=== PATIENT | male | born 1940 | race Two or more races ===

== ENCOUNTER 2017-01-31 13:03 | Emergency (ER) | payer OTHER ==
[~2017-01-31] VITALS: Ht 175.3 cm; Wt 70.3 kg
[2017-01-31] MEDS ORDERED: LIDOCAINE 2% JELLY UROJET 10 ML TOP ONE (13:15)
[2017-01-31] MEDS ORDERED: LIDOCAINE 2% JELLY 11ml (GLYDO) UR ONE (13:30)
[2017-01-31 13:42] VITALS: BP 194/104
[2017-01-31 14:01] LABS: Urine Bilirubin Negative (Negative); Urine Color Yellow (Yellow); Urine Glucose Normal (Normal); Urine Ketone Negative (Negative); Urine Nitrite Negative (Negative); Urine RBC 22 /hpf (0 - 3); Urine Urobilinogen Normal (Negative); Urine pH 6.5 (5.0-8.0)
[2017-01-31 14:02] LABS: Urine Blood 2+ /uL (Negative)
== END 2017-01-31 14:39 | disposition home or self-care (01) ==
LOC: ER 13:03
DX: N13.9 Obstructive and reflux uropathy, unspecified (principal); N41.0 Acute prostatitis; K21.9 Gastro-esophageal reflux disease without esophagitis; E78.5 Hyperlipidemia, unspecified; Z88.6 Allergy status to analgesic agent
CPT/HCPCS: 51702; 81001